=== PATIENT | male | born 1975 | race Two or more races ===

== ENCOUNTER 2020-11-07 05:53 | Emergency (ER) | payer SELFPAY ==
[~2020-11-07] VITALS: Ht 177.8 cm; Wt 91.0 kg
[2020-11-07] MEDS ORDERED: SODIUM CHLORIDE 0.9% 1,000 ML IV ONE (06:45)
[2020-11-07] MEDS ORDERED: MORPHINE SULFATE 4 MG/ML CPJ (NOT FOR IM USE) IV ONE ×2 (06:45→08:45)
[2020-11-07] MEDS ORDERED: ONDANSETRON HCL 4MG/2ML INJ IV ONE (06:45)
[2020-11-07 08:47] LABS: BASOPHILS % 0.7 % (0.0-2.0); EOSINOPHILS % 0.7 % (0.0-5.0); HEMATOCRIT. 45.3 % (42.0-52.0); HEMOGLOBIN. 15.2 g/dL (14.0-18.0); LYMPHOCYTES % 21.7 % (20.0-50.0); MEAN CORPUSCULAR HEMOGLOBIN 29.2 pg (28.0-32.0); MEAN CORPUSCULAR VOLUME 87.2 fL (80.0-94.0); MEAN PLATELET VOLUME 7.5 fl (7.4-10.4); MONOCYTES % 7.3 % (2.0-8.0); NEUTROPHILS % 69.6 % (40.0-76.0); PLATELET 200 x1000/uL (130-400); RED BLOOD CELL COUNT 5.19 mill/uL (4.7-6.1); RED CELL DISTRIBUTION WIDTH 14.8 % (11.6-14.6)
[2020-11-07 08:55] LABS: CHLORIDE 109 mEq/L (98-107)
[2020-11-07] MEDS ORDERED: HYDR-4346 MT (09:07)
[2020-11-07] MEDS ORDERED: HYDROCODONE/ACETAMINOPHEN 5/325MG TABLET PO ONE (09:15)
[2020-11-07 09:17] LABS: PROTHROMBIN TIME 10.8 sec (9.6-11.0)
[2020-11-07 09:20] VITALS: BP 115/80
== END 2020-11-07 09:57 | disposition home or self-care (01) ==
LOC: ER 05:53
DX: S30.22XA Contusion of scrotum and testes, initial encounter (principal); X58.XXXA Exposure to other specified factors, initial encounter; Y93.89 Activity, other specified; Y92.89 Other specified places as the place of occurrence of the external cause; Y99.8 Other external cause status; Z88.0 Allergy status to penicillin
CPT/HCPCS: 36415; 71045; 76870; 80053; 85025; 85610; 93976; 96374; 96375; 99285; J2270; J2405; J7030; Z7610